=== PATIENT | male | born 1955 | race Caucasian/White ===

== ENCOUNTER 2017-11-01 12:33 | Outpatient (CLI) | payer MEDICARE ==
[2017-11-01 14:30] LABS: #Basophils 0.1 thou/uL (0.0-0.2); #Eosinphils 0.2 thou/uL (0.0-0.7); #Lymphocytes 1.8 thou/uL (1.20-3.40); #Monocytes 0.6 thou/uL (0.11-0.59); #Neutrophils 7.2 thou/uL (1.40-6.50); %Basophils 0.8 % (0.0-1.0); %Eosinophils 2.1 % (0.0-10.0); %Lymphocytes 18.3 % (21.0-51.0); %Monocytes 6.4 % (0.0-10.0); %Neutrophils 72.4 % (42.0-75.0); Hemoglobin 17.2 g/dL (14.0-18.0); Mean Corpuscular HGB CONC 33.6 g/dL (32.0-36.0); Mean Corpuscular Hemoglobin 28.8 pg (27.0-31.0); Mean Corpuscular Volume 85.8 fl (80.0-94.0); Mean Platelet Volume 9.2 fL (7.4-10.4); Platelet Count 197 thou/uL (130-400); RBC Distribution Width 14.4 % (11.5-14.5); Red Blood Cell (RBC) Count 5.97 mill/uL (4.70-6.10); White Blood Cell (WBC) Count 9.9 thou/uL (4.8-10.8)
[2017-11-01 14:33] LABS: Bilirubin Negative (Negative); Blood, Urine Negative (Negative); Clarity CLEAR (Clear); Glucose, Urine (Dipstick) Negative (Negative); Leukocyte Negative (Negative); Nitrite Negative (Negative); Protein, Urine (Dipstick) Negative (Neg-Trace); Specific Gravity, Urine 1.006 (1.002-1.036); Urobilinogen 0.2 mg/dL (0.2-1.0)
[2017-11-01 14:36] LABS: PTT 30.5 SEC (22.9-36.1); Prothrombin Time 13.3 SEC (12.0-14.7)
[2017-11-01 14:42] LABS: Bacteria/HPF None Seen HPF (None Seen); Hyaline Casts/LPF 0-3 HYALINE CAST LPF (0-3 Hyaline); RBC/HPF 0-3 HPF (0-3); Squamous Epithelial None Seen HPF (0-3); WBC/HPF None Seen HPF (0-3)
[2017-11-01 14:58] LABS: Anion Gap 18 mmol/L (10-20); BUN (Urea Nitrogen) 19 mg/dL (8.4-25.7); Calc. Creatinine Clearance 0 mL/min (70-130); Calcium 10.2 mg/dL (7.8-10.44); Carbon Dioxide 25 mmol/L (23-31); Chloride 98 mmol/L (98-107); Estimated GFR-MDRD 67; Glucose 78 mg/dL (80-115); Potassium 4.6 mmol/L (3.5-5.1); Sodium 136 mmol/L (136-145)
== END 2017-11-01 12:34 | disposition home or self-care (01) ==
LOC: LABBT 12:33
PROVIDERS: ATTEND Orthopaedic Surgery
DX: Z01.818 Encounter for other preprocedural examination (principal); M17.11 Unilateral primary osteoarthritis, right knee
CPT/HCPCS: 80048; 81001; 85025; 85610; 85730; 87081; 93005; 93010

== ENCOUNTER 2017-11-09 05:57 | Day surgery (SDC) | payer MEDICARE ==
[2017-11-01 13:15] VITALS: BMI 34.3
[2017-11-09] MEDS ORDERED: Sodium Chloride 0.9% 100 ML ONE (06:19)
[2017-11-09] MEDS ORDERED: CEFAZOLIN/Water 2 GM/20 ML SYRINGE ONE (06:19)
[2017-11-09] MEDS ORDERED: Ropivacaine 0.2% HCl/PF 20 ML ONE (06:28)
[2017-11-09] MEDS ORDERED: Midazolam HCl 2 mg/2 ml Vial ONE ×2 (06:28→06:31)
[2017-11-09] MEDS ORDERED: Fentanyl 100 MCG/2 ML VIAL ONE ×3 (06:28→10:00)
[2017-11-09] MEDS ORDERED: Bupivacaine PF 0.5% 30 ML VIAL ONE (06:36)
[2017-11-09] MEDS ORDERED: HYDROcodone/Acetaminophen 10/325 mg Tablet PO PRN (07:06)
[2017-11-09] MEDS ORDERED: Ketorolac Tromethamine 30 MG/ML VIAL IVP PRN (07:06)
[2017-11-09] MEDS ORDERED: Zolpidem Tartrate 5 MG TAB PO PRN ×2 (07:06→09:32)
[2017-11-09] MEDS ORDERED: traMADol HCl 50 MG TAB PO PRN ×2 (07:06→09:32)
[2017-11-09] MEDS ORDERED: Promethazine HCl 25 MG/ML VIAL IM PRN ×3 (07:06→09:52)
[2017-11-09] MEDS ORDERED: Bupivacaine 0.5% 50 ML in Sodium Chloride 0.9% 50 ML NERVE BLCK SCH (07:06)
[2017-11-09] MEDS ORDERED: Ondansetron HCl/PF 4 MG/2 ML Vial IVP PRN ×3 (07:06→09:52)
[2017-11-09] MEDS ORDERED: Fentanyl 100 MCG/2 ML VIAL IV PRN (07:07)
[2017-11-09] MEDS ORDERED: diphenhydrAMINE 25 MG CAP PO PRN (09:32)
[2017-11-09] MEDS ORDERED: Acetaminophen 325 MG TAB PO PRN (09:32)
[2017-11-09] MEDS ORDERED: Tranexamic Acid 1,000 MG in Sodium Chloride 0.9% 100 ML IVPB SCH (09:45)
[2017-11-09] MEDS ORDERED: Promethazine HCl 25 MG/ML VIAL SLOW IVP PRN (09:52)
--- NOTE | 2017-11-09 10:12 | OP ---
DATE OF PROCEDURE: 11/09/2017 PREOPERATIVE DIAGNOSES: Severe right knee osteoarthrosis, status post previous knee dislocation with associated multiligamentous primary repair and foot drop. POSTOPERATIVE DIAGNOSES: Severe right knee osteoarthrosis, status post previous knee dislocation wit h associated multiligamentous primary repair and foot drop. PROCEDURE: Right total knee replacement using AesRx pinless navigation. SURGEON: John Hui M.D. DIGITAL IMAGING SPECIALIST: Waqar Olmedo M.D. BLOOD LOSS: Minimal. COMPLICATIONS: None. ANESTHESIA: He did have a general anesthetic as well as a preoperative block. IMPLANTS: To the right knee is a Triathlon total knee system and the femur was a size 7 cruciate-ret aining femur, tibial baseplate size 7 universal baseplate. We used a 7 x 16 mm CS X3 tibial-bearing and an asymmetric 35 x 10 X3 patella. CONDITION: He did go to the recovery room in stable condition. INDICATIONS: This is a 61-year-old male, who at the age of 17 had a knee dislocation, had a multilig amentous knee repair, and unfortunately, at that time also had a nerve injury, which gave him a perma nent foot drop. The patient has had multiple tendon transfers to try and help give him some more fun ction, but at this time presents with years of chronic pain, debilitation problems ambulating, and se garett discomfort on a daily basis. PROCEDURE IN DETAIL: After all appropriate consent forms were explained and signed, the patient was taken back to the Operating Room and at this time was given general anesthetic. Once the level of an esthesia was appropriate, a well-padded tourniquet was placed on the right leg and the leg was then p repped and draped in standard surgical fashion. The limb was exsanguinated and tourniquet taken up t o 300 mmHg. Midline incision was made with a 10 blade down through the skin and subcutaneous tissue. Bovie electrocautery was used to coagulate any brisk venous bleeding. A new blade was used to make a medial parapatellar arthrotomy. Small subperiosteal release was performed medially and excess fat pad was removed. The knee was flexed up to gain access to the femur. The femur was navigated and d istal femoral resection was made. Epicondylar access was used to align our sizing jig and this was p inned in place. We sized our femur to be a size 7 cruciate-retaining femur, 4:1 cutting block was ap plied and pinned. Anterior and posterior chamfer cuts were then made. We navigated out our proximal tibia and made our proximal tibial resection. Spreaders were used to remove any posterior osteophyt es off the back of the femur as well as remaining meniscal tissue. A long alignment adonis was then use d to achieve correct rotation of our tibial baseplate and a size 7 universal baseplate was chosen. T his was pinned in place. We trialed the polyethylene and a 7 x 16 mm CS X3 tibial-bearing polyethyle ne gave us full extension and good stability throughout range of motion. Two towel clips and a saw w ere used to cut our patella. Three lug nuts were drilled and an asymmetric 35 x 10 X3 patella was tr ialed, which sat nicely in the trochlear groove. We then drilled our femur and punched our tibia. A ll components were removed. The knee was thoroughly irrigated and dried. Cement was mixed into the cement gun on the back table. Components were then placed. The knee was held out in full extension until the cement had dried. All excess bone cement was removed. Multiple #2 Vicryl stitches as well as a Quill was used to close our extensor mechanism. 0 Quill followed by a running Monoderm was the n used to close the skin. Surgicel glue was then used on the skin. Once this had dried, soft tissue dressing was applied to the limb, tourniquet was let down, and the toes pinked up nicely. The patie nt was then awakened and taken to the Recovery Room in stable condition. All counts were correct at the end of the case. The patient did receive preoperative IV antibiotics. The patient was injected with Exparel for postoperative pain relief. *INTRAOPERATIVE FINDINGS: The patient had large cystic cavitary defect on the medial and posterior m edial femoral condyle, which was contained. Patient also had a large cystic defect on the posterior and posterior medial tibia, which again was contained. The patient was also found to have a copious amount of scar tissue from previous surgery.
[2017-11-09] MEDS: traMADol HCl 50 MG TAB PO PRN (11:56)
[2017-11-09] MEDS: Sodium Chloride 0.9% 1,000 ML IV SCH ×2 (12:04→22:47)
[2017-11-09] MEDS: Gabapentin 300 MG CAP PO SCH ×2 (14:55→21:21)
[2017-11-09] MEDS: CEFAZOLIN/Water 2 GM/20 ML SYRINGE SLOW IVP SCH ×2 (15:14→23:25)
[2017-11-09] MEDS ORDERED: Ropivacaine 0.5% HCl/PF (150 MG/30 ML VIAL) ONE (15:36)
[2017-11-09] MEDS ORDERED: Ropivacaine 0.2% HCl/PF (40 MG/20 ML VIAL) ONE (15:36)
[2017-11-09] MEDS ORDERED: Dexamethasone 20 MG/5 ML VIAL ONE (15:56)
[2017-11-09] MEDS ORDERED: Lidocaine 1% PF 5 ML VIAL ONE (15:56)
[2017-11-09] MEDS ORDERED: Ondansetron HCl/PF 4 MG/2 ML Vial ONE (15:56)
[2017-11-09] MEDS ORDERED: PROPOFOL 200 MG/20 ML VIAL ONE (15:56)
[2017-11-09] MEDS: Allopurinol 100 MG TAB PO SCH (21:21)
[2017-11-09] MEDS: Fish Oil 1,000 MG CAP PO SCH (21:21)
[2017-11-09] MEDS: Metoprolol Tartrate 50 MG TAB PO SCH (21:21)
[2017-11-09] MEDS: Aspirin 81 mg Enteric Coated Tablet PO SCH (21:21)
--- NOTE | 2017-11-09 21:34 | CON ---
DATE OF CONSULTATION: 11/09/2017 REFERRING PHYSICIAN: John Hui M.D. PRIMARY CARE PHYSICIAN: Gayle Mistry M.D. REASON FOR CONSULTATION: Perioperative medical management. HISTORY OF PRESENT ILLNESS: The patient is a 61-year-old gentleman who has a history of a knee dislo cation when he was 17 years old after stepping into a hole. Patient had surgical repair at that time ; however, he suffered continued degenerative changes of the knee, ultimately resulting in some foot drop and ultimately required surgical intervention for knee replacement. The patient underwent knee replacement today on the right with Dr. Hui. The patient is doing very well postoperatively. He is not having any significant pain other than when he tries to flex his thigh muscles a bit. Otherwise , the patient reports he has been very medically stable. REVIEW OF SYSTEMS: Only notable for some sinus congestion and resultant anosmia. Otherwise, the 10 system review was negative other than the musculoskeletal symptoms associated with his knee. PAST MEDICAL HISTORY: Notable for hypertension, hyperlipidemia, allergic rhinitis, right foot drop s econdary to degenerative joint disease, obstructive sleep apnea syndrome and gout. PAST SURGICAL HISTORY: Left total knee replacement, right knee repair with multiligamentous repair a t the age of 17. FAMILY HISTORY: Mother had breast cancer. Sister had breast cancer. SOCIAL HISTORY: Patient is . He is a former drinker and smoker, but has not done so for year s. Denies any drugs. ALLERGIES: None. MEDICATIONS: Testosterone injections 200 mg IM every 7 days, nifedipine ER 1 p.o. daily, Claritin 10 mg 1 p.o. daily, triamterene/hydrochlorothiazide 75-50 one p.o. daily, spironolactone 1 daily, metop rolol b.i.d., allopurinol b.i.d., Ambien at bedtime, diclofenac, misoprostol 1 p.o. daily, fish oil 1 000 mg 2 p.o. b.i.d., multivitamin 1 p.o. daily, gabapentin 1 p.o. t.i.d., aspirin 1 p.o. q.a.m., tra madol 1 p.o. p.r.n. PHYSICAL EXAMINATION: VITAL SIGNS: Temperature 97.5, pulse 72, respirations 20, O2 sat 96% on room air, BP 160/81. GENERAL APPEARANCE: Age appropriate male. He is quite tall and large gentleman. HEENT: PERRL. No OP lesions. NECK: Supple and symmetric without lymphadenopathy or JVD. CARDIOVASCULAR: Regular rate and rhythm without murmurs, gallops or rubs. LUNGS: Clear to auscultation bilaterally. ABDOMEN: Soft, nontender, nondistended, positive bowel sounds, no masses, no organomegaly. EXTREMITIES: Warm and dry. Postoperative dressing over the right knee. Some foot drop is certainly appreciable and well healed left knee surgical scar. LABORATORY DATA: None for this admission. IMPRESSION AND PLAN: 1. Postop right knee replacement. The patient is doing very well from that perspective, having very little discomfort. He had a substantial cystic bone changes and scar tissue from his previous patho logy. I anticipate he will be here until Sunday. Continue orders per ortho. 2. Hypertension. The patient will resume his usual home medications. We will continue to monitor. 3. Apparent history of gout, based on his medications. We will continue with those as well. 4. History of obstructive sleep apnea. The patient is not using his CPAP and has been doing okay wi th that. He would eventually like to get back on it because he believes it helps his sinus congestio n, but should be okay for a day or two postoperatively.
[2017-11-09] MEDS: Bupivacaine 0.75% 33.3 ML in Sodium Chloride 0.9% 66.7 ML NERVE BLCK SCH (23:01)
[2017-11-10] MEDS: traMADol HCl 50 MG TAB PO PRN ×2 (03:02→15:50)
[2017-11-10 05:33] LABS: Hemoglobin 14.4 g/dL (14.0-18.0); Mean Corpuscular HGB CONC 32.8 g/dL (32.0-36.0); Mean Corpuscular Hemoglobin 28.2 pg (27.0-31.0); Mean Platelet Volume 8.7 fL (7.4-10.4); Platelet Count 196 thou/uL (130-400); RBC Distribution Width 14.1 % (11.5-14.5)
[2017-11-10] MEDS: Sodium Chloride 0.9% 1,000 ML IV SCH ×2 (06:04→15:35)
[2017-11-10] MEDS ORDERED: BERBERINE PO SCH (09:00)
[2017-11-10] MEDS ORDERED: Aspirin 81 mg Enteric Coated Tablet PO SCH (09:00)
[2017-11-10] MEDS ORDERED: HOPS PO SCH (09:00)
[2017-11-10] MEDS ORDERED: Non-Formulary Item 1 EACH (Multivit-Min/Fa/Lycopen/Lutein [Centrum Silver Men Tablet] 1 T PO SCH (09:00)
[2017-11-10] MEDS ORDERED: VIT D3 VIT K PO SCH (09:00)
[2017-11-10] MEDS: Ferrous Gluconate 324 MG TAB PO SCH ×2 (10:16→18:42)
[2017-11-10] MEDS: Senokot S 8.6-50 MG TAB PO SCH ×2 (10:17→18:43)
[2017-11-10] MEDS: Allopurinol 100 MG TAB PO SCH ×2 (10:17→18:42)
[2017-11-10] MEDS: Aspirin 81 mg Enteric Coated Tablet PO SCH ×2 (10:17→18:42)
[2017-11-10] MEDS: Triamterene/Hydrochlorothiazid 75 mg/50 mg Tablet PO SCH (10:18)
[2017-11-10] MEDS: Gabapentin 300 MG CAP PO SCH ×3 (10:18→18:42)
[2017-11-10] MEDS: Spironolactone 25 MG TAB PO SCH (10:18)
[2017-11-10] MEDS: NIFEdipine XL 30 MG TAB PO SCH (10:18)
[2017-11-10] MEDS: Multivitamin W/ Minerals 1 TAB PO SCH (10:19)
[2017-11-10] MEDS: Fish Oil 1,000 MG CAP PO SCH ×2 (10:19→18:42)
[2017-11-10] MEDS: Loratadine 10 MG TAB PO SCH (10:19)
[2017-11-10] MEDS: Metoprolol Tartrate 50 MG TAB PO SCH ×2 (10:19→18:41)
[2017-11-10] MEDS: HYDROcodone/Acetaminophen 10/325 mg Tablet PO PRN ×3 (10:29→18:41)
[2017-11-10] MEDS: Bupivacaine 0.75% 33.3 ML in Sodium Chloride 0.9% 66.7 ML NERVE BLCK SCH ×2 (11:35→23:41)
--- NOTE | 2017-11-10 14:04 | PDOC.PN ---
- Subjective Encounter Start Date: 11/10/17 Encounter Start Time: 14:02 Subjective: feels well.no new complaints.mild constipation,no AP - Objective MAR Reviewed: Yes Vital Signs & Weight: Vital Signs (12 hours) Temp Pulse Resp BP BP Pulse Ox 11/10/17 12:19 98.4 F 73 16 131/79 95 11/10/17 10:18 75 11/10/17 07:43 98.2 F 75 16 125/73 95 11/10/17 04:25 98.7 F 70 20 133/69 92 L Weight Admit Weight 305 lb Weight 305 lb I&O: 11/09/17 11/10/17 11/11/17 06:59 06:59 06:59 Intake Total 1600 Output Total 1500 1140 Balance 100 -1140 Result Diagrams: 11/10/17 05:11 Additional Labs: labs reviewed Phys Exam - Physical Examination Constitutional: NAD HEENT: PERRLA, moist MMs, sclera anicteric, oral pharynx no lesions Neck: no nodes, no JVD, supple, full ROM Respiratory: no wheezing, no rales, no rhonchi, clear to auscultation bilateral Cardiovascular: RRR, no significant murmur, no rub Gastrointestinal: soft, non-tender, no distention, positive bowel sounds Musculoskeletal: no edema, pulses present Neurological: non-focal, normal sensation, moves all 4 limbs Psychiatric: normal affect, A&O x 3 Skin: no rash Dx/Plan (1) HTN (hypertension) Code(s): I10 - ESSENTIAL (PRIMARY) HYPERTENSION Status: Acute (2) Status post right knee replacement Code(s): Z96.651 - PRESENCE OF RIGHT ARTIFICIAL KNEE JOINT Status: Acute (3) HLD (hyperlipidemia) Code(s): E78.5 - HYPERLIPIDEMIA, UNSPECIFIED Status: Acute (4) CHRISTIANE (obstructive sleep apnea) Code(s): G47.33 - OBSTRUCTIVE SLEEP APNEA (ADULT) (PEDIATRIC) Status: Acute - Plan DVT proph w/SCDs BP well controlled.cont home meds as below. -: advised to discuss w tape maker for replacing Triametrene w lisinopril -: feel that he can stop aldactone as no prior h/o CHF/cardiomyopathy -: w H/O CKD,pt should not be on so many diuretics-defer tp PCP/nephrology -: monitor for hyperkalemia given aldactone & triameteren. * .cont post-op care.OT,PT,rehab * will follow * am labs Review of Systems - Review of Systems Constitutional: negative: fever, chills, sweats, weakness, malaise, other ENT: negative: Ear Pain, Ear Discharge, Nose Pain, Nose Discharge, Nose Congestion, Mouth Pain, Mouth Swelling, Throat Pain, Throat Swelling, Other Respiratory: negative: Cough, Dry, Shortness of Breath, Hemoptysis, SOB with Excertion, Pleuritic Pain, Sputum, Wheezing Cardiovascular: negative: chest pain, palpitations, orthopnea, paroxysmal nocturnal dyspnea, edema, light headedness, other Gastrointestinal: negative: Nausea, Vomiting, Abdominal Pain, Diarrhea, Constipation, Melena, Hematochezia, Other Genitourinary: negative: Dysuria, Frequency, Incontinence, Hematuria, Retention , Other Musculoskeletal: negative: Neck Pain, Shoulder Pain, Arm Pain, Back Pain, Hand Pain, Leg Pain, Foot Pain, Other Skin: negative: Rash, Lesions, Kristopher, Bruising, Other Neurological: negative: Weakness, Numbness, Incoordination, Change in Speech, Confusion, Seizures, Other - Medications/Allergies Allergies/Adverse Reactions: Allergies Allergy/AdvReac Type Severity Reaction Status Date / Time No Known Allergies Allergy Verified 11/01/17 13:15 Medications: Current Medications Acetaminophen (Tylenol) 650 mg PO Q4H PRN PRN Reason: FERREIRA/ T > 101F; Mild Pain (1-3) Hydrocodone Bitart/Acetaminophen ([place] 10/325) 1 tab PO Q4H PRN PRN Reason: Pain (1-3) Last Admin: 11/10/17 10:29 Dose: 1 tab Hydrocodone Bitart/Acetaminophen ([place] 10/325) 2 tab PO Q4H PRN PRN Reason: PAIN (4-6) Allopurinol (Zyloprim) 150 mg PO BID [facility] Last Admin: 11/10/17 10:17 Dose: 150 mg Aspirin (Ecotrin) 81 mg PO BID [facility] Last Admin: 11/10/17 10:17 Dose: 81 mg Diphenhydramine HCl (Benadryl) 25 mg PO Q6H PRN PRN Reason: Itching Fentanyl (Sublimaze) 50 mcg IV Q1H PRN PRN Reason: BREAKTHRU PAIN Ferrous Gluconate (Fergon) 324 mg PO BID-WM [facility] Last Admin: 11/10/17 10:16 Dose: 324 mg Fish Oil (Fish Oil) 2,000 mg PO BID [facility] Last Admin: 11/10/17 10:19 Dose: 2,000 mg Gabapentin (Neurontin) 300 mg PO TID [facility] Last Admin: 11/10/17 10:18 Dose: 300 mg Bupivacaine HCl 33.3 ml/ (Sodium Chloride) 100 mls @ 8 mls/hr NERVE BLCK INF [facility] Last Admin: 11/10/17 11:35 Dose: 100 mls Sodium Chloride (Normal Saline 0.9%) 1,000 mls @ 100 mls/hr IV .Q10H [facility] Last Admin: 11/10/17 06:04 Dose: Not Given Iron/Minerals/Multivitamins (Theragran M) 1 tab PO DAILY [facility] Last Admin: 11/10/17 10:19 Dose: 1 tab Ketorolac Tromethamine (Toradol) 30 mg IVP Q6H PRN PRN Reason: Moderate Pain (4-6) Stop: 11/12/17 07:07 Loratadine ([facility]) [facility] Last Admin: 11/10/17 10:19 Dose: 10 mg Metoprolol Tartrate (Lopressor) 50 mg PO BID [facility] Last Admin: 11/10/17 10:19 Dose: 50 mg Nifedipine (Procardia Xl) 30 mg PO QAM [facility] Last Admin: 11/10/17 10:18 Dose: 30 mg Ondansetron HCl (Zofran) 4 mg IVP Q6H PRN PRN Reason: Nausea/Vomiting Promethazine HCl (Phenergan) 12.5 mg IM Q4H PRN PRN Reason: Nausea/Vomiting Senna/Docusate Sodium (Senokot S) 2 tab PO BID [facility] Last Admin: 11/10/17 10:17 Dose: 2 tab Sodium Chloride (Flush - Normal Saline) 10 ml IVF PRN PRN PRN Reason: Saline Flush Spironolactone (Aldactone) 50 mg PO QAM [facility] Last Admin: 11/10/17 10:18 Dose: 50 mg Tramadol HCl (Ultram) 50 mg PO Q6H PRN PRN Reason: Mild Pain (1-3) Tramadol HCl (Ultram) 100 mg PO Q6H PRN PRN Reason: Moderate Pain 4-6 Last Admin: 11/10/17 03:02 Dose: 100 mg Triamterene/HCTZ (Maxzide 75/50) 1 tab PO QAM [facility] Last Admin: 11/10/17 10:18 Dose: 1 tab Zolpidem Tartrate (Ambien) 10 mg PO HS [facility]
[2017-11-10] MEDS ORDERED: Zolpidem Tartrate 5 MG TAB PO SCH (21:00)
[2017-11-11] MEDS: Sodium Chloride 0.9% 1,000 ML IV SCH ×2 (00:38→12:54)
[2017-11-11] MEDS: traMADol HCl 50 MG TAB PO PRN (05:26)
[2017-11-11 05:40] LABS: #Eosinphils 0.2 thou/uL (0.0-0.7); #Lymphocytes 1.3 thou/uL (1.20-3.40); #Monocytes 1.4 thou/uL (0.11-0.59); #Neutrophils 9.4 thou/uL (1.40-6.50); %Basophils 0.3 % (0.0-1.0); %Eosinophils 1.9 % (0.0-10.0); %Lymphocytes 10.5 % (21.0-51.0); %Monocytes 11.4 % (0.0-10.0); %Neutrophils 75.9 % (42.0-75.0); Hemoglobin 14.3 g/dL (14.0-18.0); Mean Corpuscular HGB CONC 32.8 g/dL (32.0-36.0); Mean Corpuscular Hemoglobin 28.2 pg (27.0-31.0); Mean Platelet Volume 9.8 fL (7.4-10.4); Platelet Count 165 thou/uL (130-400); RBC Distribution Width 14.4 % (11.5-14.5); Red Blood Cell (RBC) Count 5.07 mill/uL (4.70-6.10); White Blood Cell (WBC) Count 12.4 thou/uL (4.8-10.8)
[2017-11-11 05:50] LABS: Anion Gap 15 mmol/L (10-20); BUN (Urea Nitrogen) 16 mg/dL (8.4-25.7); Calc. Creatinine Clearance 168 mL/min (70-130); Calcium 9.3 mg/dL (7.8-10.44); Carbon Dioxide 26 mmol/L (23-31); Chloride 96 mmol/L (98-107); Estimated GFR-MDRD 87; Glucose 120 mg/dL (80-115); Potassium 3.9 mmol/L (3.5-5.1); Sodium 133 mmol/L (136-145)
[2017-11-11] MEDS: Senokot S 8.6-50 MG TAB PO SCH (08:17)
[2017-11-11] MEDS: Fish Oil 1,000 MG CAP PO SCH (08:17)
[2017-11-11] MEDS: Ferrous Gluconate 324 MG TAB PO SCH ×2 (08:18→13:06)
[2017-11-11] MEDS: Triamterene/Hydrochlorothiazid 75 mg/50 mg Tablet PO SCH (08:18)
[2017-11-11] MEDS: Metoprolol Tartrate 50 MG TAB PO SCH (08:18)
[2017-11-11] MEDS: Spironolactone 25 MG TAB PO SCH (08:18)
[2017-11-11] MEDS: Loratadine 10 MG TAB PO SCH (08:18)
[2017-11-11] MEDS: Gabapentin 300 MG CAP PO SCH ×2 (08:18→13:06)
[2017-11-11] MEDS: Multivitamin W/ Minerals 1 TAB PO SCH (08:18)
[2017-11-11] MEDS: NIFEdipine XL 30 MG TAB PO SCH (08:18)
[2017-11-11] MEDS: HYDROcodone/Acetaminophen 10/325 mg Tablet PO PRN (08:21)
[2017-11-11] MEDS: Aspirin 81 mg Enteric Coated Tablet PO SCH (08:21)
[2017-11-11] MEDS: Allopurinol 100 MG TAB PO SCH (08:21)
[2017-11-11 12:33] VITALS: BP 116/70; TEMP 97.8
--- NOTE | 2017-11-11 13:04 | PDOC.EVN ---
Event Note - Event Note Event Note: went to see the patient.was in the rstroom.discussed w . no new complaints.report sthat he is doing well. once emphasized the need to follow up w PCP for strem lining the bp meds.currently controlled so cont as before. OK to DC from IM stand point
[2017-11-16] MEDS ORDERED: TESTOSTERONE 200 MG IM SCH (09:00)
== END 2017-11-11 13:45 | disposition home or self-care (01) ==
LOC: SDC 05:57 → SJJU 11:35 → SDC 11-11 13:45
PROVIDERS: ATTEND Orthopaedic Surgery
PROC: 0SRC0J9 Replacement of Right Knee Joint with Synthetic Substitute, Cemented, Open Approach (ICD-10-PCS; principal; 2017-11-09)
DX: M17.11 Unilateral primary osteoarthritis, right knee (principal); I10 Essential (primary) hypertension; E78.5 Hyperlipidemia, unspecified; G47.33 Obstructive sleep apnea (adult) (pediatric); M10.9 Gout, unspecified; Z87.891 Personal history of nicotine dependence; Z79.899 Other long term (current) drug therapy
CPT/HCPCS: 36415; 80048; 85027; 86850; 86900; 86901; C1713; C1776; G8978-GP-CJ; G8979-GP-CI; J1100; J2001; J2250; J2405; J2704; J2795; J3010; J3370; J3490; J7050; S0020